=== PATIENT | male | born 1990 | race Caucasian/White ===

== ENCOUNTER 2017-10-05 17:22 | Emergency (ER) | payer OTHER ==
--- NOTE | 2017-10-05 19:00 | ED Physician Documentation ---
PD HPI MHE - Stated complaint Stated Complaint: MHE/ANXIETY/CHEST TIGHTNESS - Chief complaint Chief Complaint: MHE - History obtained from History obtained from: Patient - History of Present Illness Primary symptom: Other (He recently got out of the , since moving here he has had terrible nightmares, wakes up at night in a sweat because of it and feels anxious all day and overly sensitive to people being annoying. He is depressed but not suicidal. He is having trouble navigating the [place] system which is why he presented to the emergency department.) Review of Systems Constitutional: reports: Reviewed and negative Nose: reports: Reviewed and negative Cardiac: reports: Reviewed and negative PD PAST MEDICAL HISTORY - Present Medications Home Medications: Ambulatory Orders Medication Instructions Recorded Confirmed Lorazepam [Ativan] 1 mg PO TID PRN #15 tablet 10/05/17 Prazosin [Minipress] 1 mg PO DAILY #30 capsule 10/05/17 Sertraline [Zoloft] 25 mg PO DAILY #30 tablet 10/05/17 - Allergies Allergies/Adverse Reactions: Allergies Allergy/AdvReac Type Severity Reaction Status Date / Time No Known Drug Allergies Allergy Verified 10/05/17 17:36 PD ED PE NORMAL - Vitals Vital signs reviewed: Yes - General General: Alert and oriented X 3, No acute distress - HEENT HEENT: PERRL, EOMI - Neck Neck: Supple, no meningeal sign, No bony TTP - Derm Derm: Normal color, Warm and dry - Neuro Neuro: Alert and oriented X 3, Normal speech - Psych Psych: Normal mood, Normal affect Results - Vitals Vitals: Vital Signs - 24 hr 10/05/17 10/05/17 17:30 19:19 Temperature 36.5 C 36.9 C Heart Rate 62 68 Respiratory 18 12 Rate Blood Pressure 150/88 H 118/74 O2 Saturation 100 97 Oxygen O2 Source Room air - EKG (time done) 1747 Rate: Rate (enter#) (79) Rhythm: NSR [place]: Normal Intervals: Normal [place] QRS: Normal Ischemia: Normal ST segments Computer interpretation: Agree with computer Departure - Departure Disposition: Home, Self Care Clinical Impression: Anxiety Depression Qualifiers: Depression Type: major depressive disorder Major depression recurrence: single episode Active/Remission status: currently active Major depression episode severity: mild Qualified Code(s): F32.0 - Major depressive disorder, single episode, mild Condition: Good Record reviewed to determine appropriate education?: Yes Instructions: ED Stress React Prescriptions: Lorazepam [Ativan] 1 mg PO TID PRN #15 tablet PRN Reason: Anxiety Prazosin [Minipress] 1 mg PO DAILY #30 capsule Sertraline [Zoloft] 25 mg PO DAILY #30 tablet Comments: Do not drink or drive with the preexistent or the Ativan. Return if worse. Continue your due diligence to try to obtain [facility] or primary care follow-up.
[2017-10-05 19:20] VITALS: BP 118/74
== END 2017-10-05 19:54 | disposition home or self-care (01) ==
LOC: ED 17:22
DX: F41.9 Anxiety disorder, unspecified (principal); F32.9 Major depressive disorder, single episode, unspecified
CPT/HCPCS: 93005; 99283

== ENCOUNTER 2019-03-09 19:39 | Outpatient (CLI) | payer SELFPAY | END 2019-03-09 19:40 | disposition EMS.NT | LOC: EMS 19:39 | PROVIDERS: ATTEND Surgery | DX: S61.217A Laceration without foreign body of left little finger without damage to nail, initial encounter (principal); S61.215A Laceration without foreign body of left ring finger without damage to nail, initial encounter; W26.0XXA Contact with knife, initial encounter; Y93.G1 Activity, food preparation and clean up; Y92.009 Unspecified place in unspecified non-institutional (private) residence as the place of occurrence of the external cause ==

== ENCOUNTER 2019-03-09 20:58 | Emergency (ER) | payer OTHER ==
--- NOTE | 2019-03-09 23:12 | ED Physician Documentation ---
PD HPI UPPER EXT INJURY - Stated complaint Stated Complaint: HAND LAC - Chief complaint Chief Complaint: Laceration - History obtained from History obtained from: Patient - History of Present Illness Location: Left Type of injury: Laceration Where injury occurred: Home Timing - onset: How many minutes ago (approximately 45 minutes [employer]) Timing - details: Abrupt onset Improved by: Nothing Associated symptoms: Weakness. No: Numbness Similar symptoms before: Has not had sx before Recently seen: Not recently seen - Additonal information Additional information: left hand dominant patient, sustained left 4th and 5th finger lacerations tonight when he was holding an open knife and punched a wall, causing the blade to lacerate the base of the fingers. he cannot flex the left fifth finger since the injury Review of Systems Skin: reports: Laceration (s) Musculoskeletal: reports: Extremity pain. denies: Extremity swelling Neurologic: reports: Focal weakness (unable to flex left fifth digit). denies: Numbness PD PAST MEDICAL HISTORY - Past Medical History Cardiovascular: None Respiratory: None Neuro: None Endocrine/Autoimmune: None GI: None : None HEENT: None Psych: Anxiety, Panic attacks, Post traumatic stress disorder Musculoskeletal: None Derm: None - Past Surgical History Past Surgical History: No - Present Medications Home Medications: Ambulatory Orders Medication Instructions Recorded Confirmed Lorazepam [Ativan] 1 mg PO TID PRN #15 tablet 10/05/17 Prazosin [Minipress] 1 mg PO DAILY #30 capsule 10/05/17 Sertraline [Zoloft] 25 mg PO DAILY #30 tablet 10/05/17 Cephalexin [Keflex] 500 mg PO TID #14 capsule 03/10/19 - Allergies Allergies/Adverse Reactions: Allergies Allergy/AdvReac Type Severity Reaction Status Date / Time No Known Drug Allergies Allergy Verified 10/05/17 17:36 - Social History Does the pt smoke?: No Smoking Status: Never smoker Does the pt drink ETOH?: Yes Does the pt have substance abuse?: No - Immunizations Immunizations are current?: Yes - POLST Patient has POLST: No PD ED PE NORMAL - Vitals Vital signs reviewed: Yes - General General: Alert and oriented X 3, No acute distress, Well developed/nourished - Derm Derm: Normal color, Warm and dry - Extremities Extremities: No tenderness to palpate - Neuro Neuro: No sensory deficit PD ED PE EXPANDED - Extremities Extremities: No: Tendon intact (Left fifth finger extended (MCP, PIP, and DIP joints). He is unable to flex any of these joints (independent of pain). He has FROM (flex/ext) of left 4th digit, including with isolation of mcp, dip, pip [place] ints to flexion. LTS intact in all fingers and brisk cap refill in all fingertips) DARBY UE/Hands Visual: 1 - laceration (1 cm) 2 - laceration (1 cm) Results - Vitals Vitals: Oxygen O2 Source Room air Procedures - Laceration (location) Hand left Palmar Length in cm: 2 (total length of two lacerations as documented in physical exam) Wound type: Linear Neurovascular status: Sensory intact, Vascular intact. No: Motor intact (unable to flex fifth finger as noted in physical exam) Tendon involvement: Tendon Injury Anesthesia: Lidocaine 1% Wound Preparation: Chlorhexadine, Wound explored (unable to visualize ends of (or intact) tendon, left fifth digit laceration) Skin layer closure: Nylon, Interrupted, Running, Size #-0 - enter number (4-0) Other: Patient tolerated well, No complications, Dressing applied, Tetanus UTD Complexity: Simple PD MEDICAL DECISION MAKING - ED course Complexity details: considered differential, d/w patient ED course: d/w Dr. Duff (loans consultant ortho for [facility]), recommends outpatient f/u but with hand specialist. d/w ROBLES Beltran (works with Dr. Abimael Paz, hand surgery at [facility]), agrees with suturing the lacerations now, prophylaxis antibiotics, and f/u with Dr. Paz within next 24-48 hours. Departure - Departure Disposition: 01 Home, Self Care Clinical Impression: Laceration of left hand involving tendon Condition: Good Instructions: ED Laceration Hand, ED Laceration Tendon Prescriptions: Cephalexin [Keflex] 500 mg PO TID #14 capsule Comments: Follow up with hand surgery within 48 hours for repair of the tendon injury: Dr. Abimael Paz MD [address] [place] [id number] Discharge Date/Time: 03/10/19 02:01
[2019-03-10] MEDS ORDERED: LIDOCAINE 1% 2 ML VIAL SUBQ STA (00:14)
[2019-03-10] MEDS ORDERED: cephALEXin 250 MG CAPSULE PO STA (01:38)
[2019-03-10] MEDS ORDERED: BACITRACIN OINT TOP ONE (01:51)
[2019-03-10 02:01] VITALS: BP 114/72
== END 2019-03-10 02:01 | disposition home or self-care (01) ==
LOC: ED 20:58
DX: S61.412A Laceration without foreign body of left hand, initial encounter (principal); S66.922A Laceration of unspecified muscle, fascia and tendon at wrist and hand level, left hand, initial encounter; W26.0XXA Contact with knife, initial encounter; Y93.89 Activity, other specified; Y92.009 Unspecified place in unspecified non-institutional (private) residence as the place of occurrence of the external cause
CPT/HCPCS: 12001; 99283; 99284; A9270